=== PATIENT | male | born 1965 | race Caucasian/White ===

== ENCOUNTER → 2021-01-11 | Outpatient (CLI) | payer OTHER | END | disposition home or self-care (01) | LOC: RAD 11:26 | PROVIDERS: ATTEND Family Medicine | DX: R07.9 Chest pain, unspecified (principal) ==

== ENCOUNTER 2021-06-04 08:28 | Emergency (ER) | payer OTHER ==
[~2021-06-04] VITALS: Ht 177.8 cm; Wt 81.2 kg
[2021-06-04] MEDS ORDERED: SEPTDS PO (10:24)
[2021-06-04] MEDS ORDERED: CEPHALEXIN500 M1 PO (10:24)
== END 2021-06-04 10:28 | disposition home or self-care (01) ==
LOC: ED 08:28
DX: L02.212 Cutaneous abscess of back [any part, except buttock and flank] (principal)